=== PATIENT | male | born 1960 | race Caucasian/White ===

== ENCOUNTER 2017-07-07 02:25 | Emergency (ER) | payer OTHER ==
[~2017-07-07] VITALS: Ht 185.4 cm; Wt 96.3 kg
[2017-07-07 02:32] VITALS: TEMP 36.8; Ht 185.4 cm; Wt 96.3 kg
--- NOTE | 2017-07-07 03:09 | EMERGENCY ROOM VISIT NOTE ---
History Report prepared by Linette: Dameon Colbert Under the Supervision of: Dr. Christen Washington D.O. First contact with patient: 02:40 Chief Complaint: MENTAL HEALTH EVALUATION Stated Complaint: HAVING A BREAKDOWN History of Present Illness The patient is a 57 year old male who presents to the Emergency Room for a mental health evaluation due to anxiety occurring for the past month. The patient states that he has been having a lot of stress at his job, and he thinks that he may be fired sometime soon. He states that he has had thoughts of hurting himself, though he has not done anything. He denies any hallucinations or homicidal ideation. He states that he has had similar thoughts for the past month. The patient additionally states that his blood pressure has been high recently due to the stress, his face has been red, and he has been having some intermittent chest pain throughout the day. Additionally , he states that he has a history of a stroke a year ago, and he is now currently on Plavix. The patient states that he has not been sleeping very much recently, and he has been drinking alcohol more than usual. Pt denies headache, change in vision, fevers, shortness of breath, nausea, vomiting, diarrhea, pain with urination, and melena. Source of History: patient Position: other (global) Quality: other (anxiety) Timing: constant Associated Symptoms: + chest pain Review of Systems See HPI for pertinent positives & negatives. A total of 10 systems reviewed and were otherwise negative. Past Medical & Surgical Medical Problems: (1) Stroke Social History Smoking Status: Never Smoker Marital Status: Housing Status: lives with family Occupation Status: employed Current/Historical Medications Scheduled Atenolol (Tenormin), 50 MG PO DAILY Atorvastatin (Lipitor), 20 MG PO DAILY Clopidogrel (Plavix), 75 MG PO DAILY Lisinopril/Hctz (Zestoretic 20MG/12.5MG), 1 TAB PO DAILY Multivitamin (Multivitamin), 1 TAB PO DAILY Allergies Coded Allergies: Penicillins (Verified Allergy, Unknown, childhood allergy, 07/07/17) Physical Exam Vital Signs Date Time Temp Pulse Resp B/P (MAP) Pulse Ox O2 Delivery O2 Flow Rate FiO2 07/07/17 14:55 58 18 135/78 98 Room Air 07/07/17 08:24 59 16 129/74 95 07/07/17 06:37 61 129/78 96 07/07/17 02:32 36.8 66 18 179/92 98 Room Air Physical Exam GENERAL: alert, well appearing, well nourished, no distress, non-toxic, anxious appearing EYE EXAM: normal conjunctiva, PERRL and EOM's grossly intact OROPHARYNX: no exudate, no erythema, lips, buccal mucosa, and tongue normal and mucous membranes are moist NECK: supple, no nuchal rigidity, no adenopathy, non-tender LUNGS: Clear to auscultation. Normal chest wall mechanics, no w/r/r HEART: no murmurs, S1 normal and S2 normal CHEST: No reproducible chest pain. ABDOMEN: abdomen soft, non-tender, normo-active bowel sounds, no masses, no rebound or guarding. BACK: Back is symmetrical on inspection and there is no deformity, no midline tenderness, no CVA tenderness. SKIN: no rashes and no bruising UPPER EXTREMITIES: upper extremities are grossly normal. FROM, nml pulses. LOWER EXTREMITIES: No pitting edema. FROM, nml pulses. NEURO EXAM: Normal sensorium, cranial nerves II-XII intact, normal speech, no weakness of arms, no weakness of legs. No drift. Finger to nose intact. Sensation intact. PSYCH: Positive suicidal ideations, anxiety, and depression. Medical Decision & Procedures ER Provider Diagnostic Interpretation: Radiology results have been interpreted by me. ONE VIEW PORTABLE: No cardiomegaly. No effusion. No wide mediastinum. No focal infiltrate. No pulmonary edema. Laboratory Results 07/07/17 03:20 Red Blood Count 4.92, Mean Corpuscular Volume 87.2, Mean Corpuscular Hemoglobin 31.9, Mean Corpuscular Hemoglobin Concent 36.6, Mean Platelet Volume 7.9, Neutrophils (%) (Auto) 66.5, Lymphocytes (%) (Auto) 20.7, Monocytes (%) (Auto) 10.5, Eosinophils (%) (Auto) 1.2, Basophils (%) (Auto) 0.6, Neutrophils # (Auto ) 5.32, Lymphocytes # (Auto) 1.66, Monocytes # (Auto) 0.84, Eosinophils # (Auto ) 0.10, Basophils # (Auto) 0.05 07/07/17 03:20 Test 07/07/17 02:45 07/07/17 03:20 Urine Opiates Screen NEG (NEG) Urine Methadone, Qualitative NEG (NEG) Urine Barbiturates NEG (NEG) Urine Phencyclidine (PCP) Level NEG (NEG) Ur Amphetamine/Methamphetamine NEG (NEG) MDMA (Ecstasy) Screen NEG (NEG) Urine Benzodiazepines Screen NEG (NEG) Urine Cocaine Metabolite NEG (NEG) Urine Marijuana (THC) NEG (NEG) White Blood Count 8.01 K/uL (4.8-10.8) Red Blood Count 4.92 M/uL (4.7-6.1) Hemoglobin 15.7 g/dL (14.0-18.0) Hematocrit 42.9 % (42-52) Mean Corpuscular Volume 87.2 fL (80-100) Mean Corpuscular Hemoglobin 31.9 pg (25-34) Mean Corpuscular Hemoglobin Concent 36.6 g/dl (32-36) Platelet Count 318 K/uL (130-400) Mean Platelet Volume 7.9 fL (7.4-10.4) Neutrophils (%) (Auto) 66.5 % Lymphocytes (%) (Auto) 20.7 % Monocytes (%) (Auto) 10.5 % Eosinophils (%) (Auto) 1.2 % Basophils (%) (Auto) 0.6 % Neutrophils # (Auto) 5.32 K/uL (1.4-6.5) Lymphocytes # (Auto) 1.66 K/uL (1.2-3.4) Monocytes # (Auto) 0.84 K/uL (0.11-0.59) Eosinophils # (Auto) 0.10 K/uL (0-0.5) Basophils # (Auto) 0.05 K/uL (0-0.2) RDW Standard Deviation 40.5 fL (36.4-46.3) RDW Coefficient of Variation 12.6 % (11.5-14.5) Immature Granulocyte % (Auto) 0.5 % Immature Granulocyte # (Auto) 0.04 K/uL (0.00-0.02) Anion Gap 10.0 mmol/L (3-11) Est Creatinine Clear Calc Drug Dose 135.1 ml/min Estimated GFR () 118.3 Estimated GFR (Non- 102.1 BUN/Creatinine Ratio 11.6 (10-20) Calcium Level 9.0 mg/dl (8.5-10.1) Total Bilirubin 0.5 mg/dl (0.2-1) Aspartate Amino Transf (AST/SGOT) 21 U/L (15-37) Alanine Aminotransferase (ALT/SGPT) 38 U/L (12-78) Alkaline Phosphatase 55 U/L (45-117) Troponin I < 0.015 ng/ml (0-0.045) Total Protein 7.5 gm/dl (6.4-8.2) Albumin 3.9 gm/dl (3.4-5.0) Globulin 3.6 gm/dl (2.5-4.0) Albumin/Globulin Ratio 1.1 (0.9-2) Thyroid Stimulating Hormone (TSH) 1.440 uIu/ml (0.300-4.500) Chemistry Specimen Hemolysis Ethyl Alcohol mg/dL < 3.0 mg/dl (0-3) Laboratory results per my review. Medications Administered Medications (Trade) Dose Ordered Sig/Yamilet Route Start Time Stop Time Status Last Admin Dose Admin Lorazepam (Ativan Tab) 0.5 mg NOW STAT SL 07/07/17 04:13 07/07/17 04:14 DC 07/07/17 04:39 0.5 MG Clopidogrel Bisulfate (plAVix TAB) 75 mg NOW ONCE PO 07/07/17 08:30 07/07/17 08:31 DC 07/07/17 08:30 75 MG HCTZ/Lisinopril (Prinzide 10-12.5MG Tab) 1 tab NOW STAT PO 07/07/17 08:23 07/07/17 08:24 DC 07/07/17 08:23 1 TAB Atenolol (Tenormin Tab) 50 mg NOW ONCE PO 07/07/17 08:30 07/07/17 08:31 DC 07/07/17 08:30 50 MG ECG Indication: chest pain Rate (beats per minute): 60 Rhythm: normal sinus Findings: T-wave inversion (lead 3), no acute ischemic change, no ectopy, other (normal intervals and normal axis) ED Course 0240: The patient was evaluated in room A6. A complete history and physical exam was performed. 0413: Ativan Tab 0.5mg SL 0745: Pt VS stable. Being evaluated by psych pillowcase cleaner. 0918: Pt signed out to Dr. Garcia. Medical Decision Differential diagnosis: Etiologies such as mood disorder, infection, hypoglycemia, electrolyte abnormalities, cardiac sources, intracerebral event, toxicologic, neurologic, as well as others were entertained. Pt with increased stress/anxiety, Si, no plan. Here voluntarily. Mild to moderate hyponatremia noted, like chronic from Etoh and BP meds. Pt with mild tremors noted during exam, likely combination of anxiety and EtoH use. Pt has been using EtOH to cope. Pt without any signed of more active etoh withdrawal, no hx of DT's/Seizures/admission due to etoh. Doubt occult infection. Medication Reconcilliation Current Medication List: was personally reviewed by me Blood Pressure Screening Patient's blood pressure: Elevated blood pressure Blood pressure disposition: Elevated BP felt to be situational Impression Primary Impression: Depression Additional Impressions: Acute anxiety Alcohol abuse Suicidal ideation Hypertension Hyponatremia Scribe Attestation The scribe's documentation has been prepared under my direction and personally reviewed by me in its entirety. I confirm that the note above accurately reflects all work, treatment, procedures, and medical decision making performed by me. Departure Information Dispostion Still a Patient Referrals No Doctor, Assigned (PCP) Patient Instructions [facility] Problem Qualifiers Primary Impression: Depression Depression Type: unspecified Qualified Codes: F32.9 - Major depressive disorder, single episode, unspecified Additional Impressions: Hypertension Hypertension type: essential hypertension Qualified Codes: I10 - Essential ( primary) hypertension
[2017-07-07 03:40] LABS: BASO % 0.6 %; BASO ABS # 0.05 K/uL (0-0.2); COMPLETE YES; EOS % 1.2 %; HEMATOCRIT 42.9 % (42-52); IG% 0.5 %; LYMPH % 20.7 %; LYMPH ABS # 1.66 K/uL (1.2-3.4); MEAN CELL VOLUME 87.2 fL (80-100); MEAN CORPUSCULAR HEMOGLOBIN 31.9 pg (25-34); MEAN CORPUSCULAR HGB CONC 36.6 g/dl (32-36); MEAN PLATELET VOLUME 7.9 fL (7.4-10.4); MONO % 10.5 %; NEUT % 66.5 %; PLATELET COUNT 318 K/uL (130-400); RED BLOOD COUNT 4.92 M/uL (4.7-6.1); WHITE BLOOD COUNT 8.01 K/uL (4.8-10.8)
[2017-07-07 03:49] LABS: BENZODIAZEPINE, URINE NEG (NEG); COCAINE,URINE NEG (NEG); PHENCYCLIDINE, URINE NEG (NEG)
[2017-07-07 04:09] LABS: ALT/SGPT 38 U/L (12-78); AST/SGOT 21 U/L (15-37); BLOOD UREA NITROGEN 8 mg/dl (7-18); BUN/CREATININE RATIO 11.6 (10-20); CARBON DIOXIDE 26 mmol/L (21-32); CHLORIDE 92 mmol/L (98-107); CREATININE 0.72 mg/dl (0.60-1.40); GLUCOSE 94 mg/dl (70-99); POTASSIUM 4.3 mmol/L (3.5-5.1); SODIUM 128 mmol/L (136-145)
[2017-07-07 04:10] LABS: ALB/GLOB RATIO 1.1 (0.9-2); ALKALINE PHOSPHATASE 55 U/L (45-117)
[2017-07-07] MEDS ORDERED: LORAZEPAM 0.5 MG TAB SL STA (04:13)
[2017-07-07] MEDS ORDERED: LISI-787 PO (04:18)
[2017-07-07] MEDS ORDERED: CLOP1TAB15 PO (04:18)
[2017-07-07] MEDS ORDERED: MULT-506 PO (04:18)
[2017-07-07] MEDS ORDERED: ATOR-22 PO (04:18)
[2017-07-07] MEDS ORDERED: ATEN50TA8 PO (04:18)
--- NOTE | 2017-07-07 07:07 | DIAGNOSTIC IMAGING REPORT ---
CHEST ONE VIEW PORTABLE HISTORY: 57 years-old Male chest pain, htn acute atypical chest pain with hypertension COMPARISON: None available TECHNIQUE: Portable upright AP view of the chest FINDINGS: Cardiomediastinal and hilar silhouettes are within normal limits. Mild biapical pleural-parenchymal scarring. Subsegmental opacities of the inferior left lung base suggest atelectasis or scarring. There is no pneumothorax, pleural effusion, focal airspace consolidation or overt pulmonary edema. The bones of the chest appear grossly intact. Moderate degenerative changes about the AC joints. IMPRESSION: No acute cardiopulmonary process. The above report was generated using voice recognition software. It may contain grammatical, syntax or spelling errors. Electronically signed by: Armando Malcolm M.D. 07/07/2017 7:05 AM Dictated Date/Time: 07/07/2017 7:04 AM
[2017-07-07] MEDS ORDERED: LISINOPRIL/HCTZ 10/12.5MG TAB PO STA (08:23)
[2017-07-07] MEDS ORDERED: CLOPIDOGREL BISULFATE 75 MG TAB PO ONE (08:30)
[2017-07-07 14:55] VITALS: BP 135/78; PULSE 58; O2SAT 98
--- NOTE | 2017-07-07 15:52 | EMERGENCY ROOM VISIT NOTE ---
ED Visit Note First contact with patient: 09:30 57 yr old male signed out to me by Dr Washington awaiting mental health evaluation. He is depressed due to job stresses and is now having suicidal ideations. Medically cleared by Dr Washington and awaiting mental health evaluation. Accepted to [facility] and signed 201 around 10:30am. No issues while in department and stable at discharge.
== END 2017-07-07 15:30 ==
LOC: C.EDB 02:27 → C.EDA 15:30
DX: Z00.8 Encounter for other general examination (principal); R45.851 Suicidal ideations; F29 Unspecified psychosis not due to a substance or known physiological condition; Z79.899 Other long term (current) drug therapy; I10 Essential (primary) hypertension; E87.1 Hypo-osmolality and hyponatremia